=== PATIENT | female | born 1975 | race Caucasian/White ===

== ENCOUNTER 2016-08-19 10:32 | Emergency (ER) | payer OTHER ==
[~2016-08-19] VITALS: Ht 170.2 cm; Wt 65.9 kg
[~2016-08-19 10:32] MED LIST: ASC500 PO; FERR324T11 PO
[2016-08-19 10:49] VITALS: BP 124/78; PULSE 81; RESP 12; O2SAT 97
--- NOTE | 2016-08-19 11:25 | ED.REPORT ---
HPI-Neurologic Deficit Date of Service August 19, 2016 ED Provider: The patient is an otherwise healthy 41 year old female who presents to the emergency department with multiple complaints. She reports smoking a "dab" or marijuana oil yesterday for the first time shortly prior to her symptom onset. The patient was at a sports game yesterday when she suddenly started to feel "weird and foggy." Soon after she started vomiting and also experienced right- sided facial numbness and bilateral arm heaviness. She has been able to walk normally. She also admits to using alcohol yesterday. The patient has not had similar symptoms in the past. She reports smoking marijuana oil for the first time yesterday. She denies chest pain. Nursing Notes Stated Complaint: POSS TMI Chief Complaint: Neuro Symptoms/ Deficits Nursing Notes Reviewed: Yes Allergies: Coded Allergies: No Known Allergies (Verified , 10/25/05) Scheduled Ascorbic Acid-Expunged Drug, Do Not Renew! (Vitamin C-Expunged Drug, Do Not Renew!) 500 Mg Tablet 500 MG PO DAILY TAKE W/IRON TABLETS FERROUS GLUCONATE-Expunged Drug, Do Not Renew (FERROUS GLUCONATE-Expunged Drug, Do Not Renew) 324 Mg Tablet 324 MG PO DAILY General Time Seen by Provider: 11:26 Chief Complaint Other (multiple complaints) Hx Obtained From: Patient Arrived By: Walk-in Sudden in Onset?: Yes Onset Occurred: Yesterday Symptom Duration: Since onset Progression Since Onset: Constant Severity: Current: No pain currently Severity: Maximum: No pain Recent Healthcare: No recent doctor visit, No recent hospitalization Similar Sx Previous: No Risk Factors NIH Stroke Scale Level of Consciousness: Alert and responsive (0) Ask Month & Age: Both questions right (0) Open/Close Eyes/Hand Central [employer] Specialist: Performs both tasks (0) Horizontal EO Movements: None (0) Visual [place]: No visual loss (0) Facial Palsy: Normal symmetry (0) Right Arm Motor Drift (10s): No drift 10 sec (0) Left Arm Motor Drift (10s): No drift 10 sec (0) Right Leg Motor Drift (5s): No drift 5 sec (0) Left Leg Motor Drift (5s): No drift 5 sec (0) Limb Ataxia FNF/Heel-Gotti: No ataxia (0) Sensation (Arms/Legs/Face): No sensory loss (0) Language Aphasia: No aphasia, normal (0) Dysarthria: No dysarthria, normal (0) Extinction/Inattention: No exctinct/inattent (0) NIHSS Score: 0 Time NIHSS Performed: 11:30 Date NIHSS Performed: August 19, 2016 Past Medical History Past Medical History Denies Past Surgical History Reports: Hysterectomy Family History Noncontributory Smoking History Current Every Day Smoker Social History Alcohol Use: "Social" Drug Use: THC Other Social History: Good social support, Lives with children, Local resident Ambulatory Status Independent Review of Systems Review of Systems Note: +feels foggy, arms feel heavy Cardiovascular: Denies: Chest pain GI: Reports: Nausea, Vomiting Neurologic: Reports: Numbness (right-sided), Denies: Problem walking Complete sys rev & neg: except as marked. Physical Exam Initial Vital Signs Vital Signs (First) Date Time Temp Pulse Resp B/P Pulse Ox O2 Delivery O2 Flow Rate FiO2 08/19/16 10:49 36.9 81 12 124/78 97 Room Air Initial VS: Reviewed, Vital signs normal ENT: Mucous membranes moist, Conjunctiva normal, No scleral icterus Neck: Supple, Non-tender, Full range of motion Abdomen / GI: Soft, Non-tender, No guarding, No rebound, No distention Lymphatic: No lymphadenopathy Extremities: Vascular intact, Neuro intact, No swelling, No tenderness Skin: Warm, Dry, No cyanosis Psychiatric: Mood/affect normal, Behavior normal, Normal thought content General/Constitutional: Awake, Alert Head / Eyes: Normocephalic, PERRL, EOMI, No nystagmus Respiratory / Chest: Atraumatic, Breath sounds NL, Breath sounds = bilat, No respiratory distress, No rales, No rhonchi, No wheezing Cardiovascular: Heart rate NL, Regular rhythm, Heart sounds NL, No murmurs, No rubs, Peripheral circulation NL Neurologic: Oriented X3, Speech NL, No motor deficits, No sensory deficits, CN II - XII intact, Cerebellar NL, Memory NL NIH stroke scale score: 0 Interpretation & Diagnostics ECG Interpretation ECG Interpretation: Sinus rhythm with a rate of 74 Time: 11:47 Interpreted by: ED physician Re-Eval/Medical Decision Med Decision/Clinical Course Overall symptomatology is strange, and has resolved. Does not sound consistent with an acute ischemic stroke or TIA. The patient has no risk factors for this. Does not sound consistent with a heart attack either. Her EKG is normal in the ER her neurologic exam is normal with a stroke scale of 0. Strongly question whether this has any relation to the antecedent marijuana use yesterday. We talked at length and the patient feels comfortable going home. She agrees to follow-up with a primary care doctor, avoid alcohol and drug use, and return to ER immediately for any recurrent or concerning symptoms. Re-Evaluation/Progress #1: Time of Eval: 11:31 Re-Evaluation/Progress Note: Discussed plan for EKG and discharge. Re-Evaluation/Progress #2: Time of Eval: 12:09 Re-Evaluation/Progress Note: Discussed EKG results, and plan for discharge. Counseled Regarding: Diagnosis, Need for follow-up, When/why to return to ED Discharge & Departure Impression: Primary Impression: Paresthesia Disposition: Home Discharge Condition All VS Reviewed: Yes Condition: Stable Additional Instructions: Thank you for entrusting us with your care today. Your exam findings and EKG results are reassuring. You should establish care with a new primary physician. We have given you a referral to the residency clinic. Start taking 81 mg aspirin daily. Return to the emergency department for any new or concerning symptoms. Referrals: Marisa Kent MD (PCP) Scribe Attestation Portions of this note were transcribed by Christina Lewis. I, Dr. Aleman personally performed the history, physical exam and medical decision-making; I reviewed and confirmed the accuracy of the information in the transcribed note. Signed by: David Stapleton, 08/19/2016 at 1210. copies to: Marisa Kent MD, Timothy S DO August 19, 2016 11:25 Christina Lewis August 19, 2016 11:34
[2016-08-19 12:14] VITALS: BP 124/78; PULSE 75; RESP 10; O2SAT 96
== END 2016-08-19 12:16 | disposition home or self-care (01) ==
LOC: SED 10:32
DX: R20.2 Paresthesia of skin (principal); F17.200 Nicotine dependence, unspecified, uncomplicated